=== PATIENT | female | born 1935 | race Caucasian/White ===

== ENCOUNTER → 2016-10-22 | Outpatient (CLI) | payer MEDICARE, OTHER ==
[~2016-10-22] MED LIST: ASPIR-LOW81 MG PO; FOSAMAX70 MG PO; LISINOPRIL10 MG PO; METOPROLOL TART50 MG PO; NAPROXEN500 MG PO; OMEPRAZOLE20 M1 PO; OXYBUTYNIN CHLO10 MG PO; SENNA-DOCUSATE1 EACH PO; SIMVASTATIN20 MG PO; VITAMIN B-1000 MCG/M IM
== END ==
LOC: MAMO 10:17
DX: Z12.31 Encounter for screening mammogram for malignant neoplasm of breast (principal)
CPT/HCPCS: G0202

== ENCOUNTER 2020-06-26 11:00 | Emergency (ER) | payer OTHER ==
[2020-06-26] MEDS ORDERED: HYDROCODON-ACE1 EAC2 PO (14:46)
[2020-07-23] MEDS ORDERED: LOSARTAN POTASS50 MG PO (07:08)
[2020-07-23] MEDS ORDERED: SERTRALINE HCL50 MG PO (07:09)
[2020-07-23] MEDS ORDERED: PROTONIX 40 MG40 M1 PO (07:09)
[2020-07-23] MEDS ORDERED: PEPCID40 MG PO (07:10)
[2020-07-23] MEDS ORDERED: MIRTAZAPINE15 MG PO (07:11)
[2020-07-23] MEDS ORDERED: PROVENTIL HFA6.7 GM INH (07:12)
== END 2020-06-26 15:25 | disposition home or self-care (01) ==
LOC: ER1 11:00
DX: S32.039A Unspecified fracture of third lumbar vertebra, initial encounter for closed fracture (principal); M11.252 Other chondrocalcinosis, left hip; M31.1 Thrombotic microangiopathy; E78.5 Hyperlipidemia, unspecified; I10 Essential (primary) hypertension; J45.909 Unspecified asthma, uncomplicated; W19.XXXA Unspecified fall, initial encounter; Y92.000 Kitchen of unspecified non-institutional (private) residence as the place of occurrence of the external cause
CPT/HCPCS: 72131; 73522; 99284

== ENCOUNTER → 2020-07-16 | Outpatient (CLI) | payer OTHER ==
[~2020-07-16] MED LIST changes: +HYDROCODON-ACE1 EAC2 PO; +LOSARTAN POTASS50 MG PO; +MIRTAZAPINE15 MG PO; +PEPCID40 MG PO; +PROTONIX 40 MG40 M1 PO; +PROVENTIL HFA6.7 GM INH; +SERTRALINE HCL50 MG PO
== END ==
LOC: EXRD 08:27
DX: M81.0 Age-related osteoporosis without current pathological fracture (principal); T14.8XXA Other injury of unspecified body region, initial encounter; X58.XXXA Exposure to other specified factors, initial encounter
CPT/HCPCS: 77080

== ENCOUNTER → 2020-07-17 | Outpatient (CLI) | payer OTHER ==
[2020-07-17 12:09] LABS: HEMOGLOBIN 14.2 gm/dl (12.3-15.3); RED BLOOD COUNT 4.52 M/UL (4.00-5.10); WHITE BLOOD COUNT 5.8 K/UL (4.5-11.0)
== END ==
LOC: OPSV2 11:00
PROVIDERS: Orthopaedic Surgery
DX: Z01.818 Encounter for other preprocedural examination (principal); S32.038A Other fracture of third lumbar vertebra, initial encounter for closed fracture; X58.XXXA Exposure to other specified factors, initial encounter
CPT/HCPCS: 36415; 71046; 80048; 85027

== ENCOUNTER → 2020-07-23 | Day surgery (SDC) | payer OTHER | END | disposition home or self-care (01) | LOC: OR 07-16 09:30 | PROVIDERS: Orthopaedic Surgery | PROC: 0QB03ZX Excision of Lumbar Vertebra, Percutaneous Approach, Diagnostic (ICD-10-PCS; principal; 2020-07-23 07:30) | PROC: 0QU03JZ Supplement Lumbar Vertebra with Synthetic Substitute, Percutaneous Approach (ICD-10-PCS; principal; 2020-07-23 07:30) | DX: M80.88XA Other osteoporosis with current pathological fracture, vertebra(e), initial encounter for fracture (principal); I10 Essential (primary) hypertension; E78.5 Hyperlipidemia, unspecified; M06.9 Rheumatoid arthritis, unspecified; J45.909 Unspecified asthma, uncomplicated; K21.9 Gastro-esophageal reflux disease without esophagitis; R32 Unspecified urinary incontinence; R60.9 Edema, unspecified; Z87.891 Personal history of nicotine dependence; Z79.1 Long term (current) use of non-steroidal anti-inflammatories (NSAID); Z79.899 Other long term (current) drug therapy | CPT/HCPCS: C1713; J0690; J1100; J2001; J2405; J2704; J2710; J3010; J7120; Q9962 ==